=== PATIENT | female | born 1960 | race Caucasian/White ===

== ENCOUNTER 2020-05-08 00:08 | Emergency (ER) | payer MEDICAID ==
[~2020-05-08] VITALS: Ht 162.6 cm; Wt 99.0 kg
--- NOTE | 2020-05-08 00:19 | NUR ---
Dr. Brooke at bedside for MSE.
[2020-05-08] MEDS ORDERED: ALBU8.5H8 IH (00:21)
[2020-05-08 00:49] LABS: BASOPHILS # (AUTO) 0.1 K/uL (0.0-8.0); BASOPHILS % (AUTO) 1.2 % (0.0-2.0); EOSINOPHILS % (AUTO) 0.5 % (0.0-7.0); HEMATOCRIT 41.6 % (31.2-41.9); HEMOGLOBIN 14.5 g/dL (10.9-14.3); LYMPHOCYTES # (AUTO) 1.2 K/uL (20.0-40.0); LYMPHOCYTES % (AUTO) 28.3 % (20.5-51.5); MEAN CORPUSCULAR HGB CONC 35 g/dL (32.3-35.6); MEAN CORPUSCULAR VOLUME 88.8 fL (75.5-95.3); MONOCYTES # (AUTO) 0.3 K/uL (2.0-10.0); NEUTROPHILS # (AUTO) 2.8 K/uL (1.8-8.9); PLATELET COUNT (AUTO) 158 K/uL (179-408); RED BLOOD CELL COUNT(AUTO) 4.69 MIL/uL (3.63-4.92); WHITE BLOOD COUNT (AUTO) 4.4 K/uL (3.8-11.8)
--- NOTE | 2020-05-08 00:49 | NUR ---
Xray at bedside.
[2020-05-08 00:51] LABS: CREATININE 0.9 mg/dL (0.6-1.3)
[2020-05-08] MEDS ORDERED: POTASSIUM CHLORIDE 20 MEQ TAB.PRT.SR PO ONE (01:00)
[2020-05-08] MEDS ORDERED: POTASSIUM CHLORIDE 20 MEQ TAB.PRT.SR ONE (01:17)
[2020-05-08] MEDS ORDERED: ONDANSETRON 4 MG/2 ML VIAL ONE ×2 (01:40→04:27)
[2020-05-08] MEDS ORDERED: PANTOPRAZOLE SODIUM 40 MG VIAL ONE (01:41)
[2020-05-08] MEDS ORDERED: PANTOPRAZOLE SODIUM 40 MG VIAL IV ONE (01:45)
[2020-05-08] MEDS ORDERED: ONDANSETRON 4 MG/2 ML VIAL IV ONE ×2 (01:45→04:30)
[2020-05-08] MEDS ORDERED: SWABABLE VALVE TRANSFER SET EA MC ONE (01:56)
[2020-05-08] MEDS ORDERED: IV NORMAL SALINE 250 ML IV ONE (01:57)
[2020-05-08] MEDS ORDERED: IOHEXOL 350 100 ML INFUS..BTL ONE (01:57)
--- NOTE | 2020-05-08 02:00 | NUR ---
Pt out of ER for CT.
--- NOTE | 2020-05-08 02:22 | NUR ---
Patient back to ER from CT.
[2020-05-08] MEDS ORDERED: METOCLOPRAMIDE HCL 10 MG/2 ML VIAL ONE (04:44)
[2020-05-08] MEDS ORDERED: METOCLOPRAMIDE HCL 10 MG/2 ML VIAL IV ONE (04:45)
[2020-05-08] MEDS ORDERED: IV NORMAL SALINE 1000 ML BAG IV ONE (04:45)
--- NOTE | 2020-05-08 06:16 | NUR ---
Patient stated she wants to go home, MD made aware. Patient discharged to home in stable condition. Written and verbal after care instructions given. Patient verbalizes understanding of instructions. Stressed follow up or return to ER for worsening s/s. Patient out of ER with steady gait, no acute signs of distress, VSS, all belongings taken, IV site discontinued, provided with copies of diagnostic procedures.
[2020-05-08 06:18] VITALS: BP 143/76
== END 2020-05-08 06:19 | disposition home or self-care (01) ==
LOC: ER 00:12
DX: U07.1 COVID-19 (principal); R07.9 Chest pain, unspecified; R11.10 Vomiting, unspecified; Z88.6 Allergy status to analgesic agent; J45.909 Unspecified asthma, uncomplicated
CPT/HCPCS: 36415; 71045; 71275; 80048; 84484 ×2; 85025; 85379; 93005 ×2; 96361; 96374; 96375; 96376; 99285; C9113; J2405 ×2; J2765; Q9967; 70030-TC; A4663; J7030; J7050